=== PATIENT | male | born 1975 | race Caucasian/White ===

== ENCOUNTER → 2019-11-13 | Outpatient (CLI) | payer BC ==
--- NOTE | 2019-11-13 10:25 | REP ---
Gastric emptying nuclear scintigraphy: History: Adult hypertrophic pyloric stenosis. Weight loss. No comparison study. Technique: 1.04 mCi of technetium-99m sulfur colloid was ingested in two scrambled eggs and 6 ounces of water and sequential anterior and posterior images are acquired for an 89-minute imaging observation period. Regions of interest are drawn around the stomach to plot gastric emptying. Scintigraphic findings: Expected T1/2 is 90 minutes. Zero % emptying is observed in this patient during the 89-minute imaging observation period 0% emptying means the T 1/2 is not calculable. Impression: No observable gastric emptying. Markedly delayed. Electronically Signed by Magnus Romero MD 11/13/2019 10:17 A
== END ==
LOC: M RAD 07:40
PROVIDERS: ATTEND Internal Medicine Gastroenterology
DX: K31.1 Adult hypertrophic pyloric stenosis (principal)
CPT/HCPCS: 78264; A9541